=== PATIENT | female | born 1995 | race Native Hawaiian/Other Pacific Islander ===

== ENCOUNTER 2017-05-15 19:22 | Emergency (ER) | payer OTHER ==
[2017-05-15 19:50] VITALS: TEMP 98.4
--- NOTE | 2017-05-15 19:56 | PD ---
HPI Chief Complaint Contractions, leaking fluid Date Seen: May 15, 2017 (Zaria Bonilla MD, R3) Travel History International Travel<30 Days: No Contact w/Intl Traveler<30Days: No Known Affected Area: No (Zaria Bonilla MD, R3) History of Present Illness HPI Patient is a 22 year old at 36-5/7 weeks gestation who presents today for contractions and leaking fluid. She was checked by her outpatient provider yesterday and states that she has had leaking fluid since last night. She has also noticed about 2-3 contractions per hour. She was dilated 2cm in the outpatient office yesterday. She is also having some spotting. Positive movement. complicated by gestational diabetes that is diet controlled. care with Dr. Brito. (Zaria Bonilla MD, R3) History Past Medical History Narrative Medical Gestational Diabetes (Zaria Bonilla MD, R3) Obstetric History Obstetric History spontaneous 2015 (Zaria Bonilla MD, R3) Past Surgical History Surgical History: No Previous Surgery (Zaria Bonilla MD, R3) Family History Family History: Negative (Zaria Bonilla MD, R3) Social History Alcohol Use: No Tobacco Use: No Substance Abuse: No (Zaria Bonilla MD, R3) Allergies-Medications (Allergen,Severity, Reaction): Coded Allergies: No Known Allergies (Unverified , 05/15/17) Review of Systems Except as stated in HPI: all other systems reviewed are Neg General / Constitutional: No: Fever, Chills Eyes: No: Blurred Vision, Visual changes HENT: No: Headaches Cardiovascular: No: Chest Pain or Discomfort, Palpitations Respiratory: No: Cough, Short of Breath Gastrointestinal: No: Nausea, Vomiting Genitourinary: Pelvic Pain, Discharge, Vaginal Bleeding, No: Dysuria, Hematuria Musculoskeletal: No: Edema Neurologic: No: Headache Psychiatric: No: Substance Abuse (Zaria Bonilla MD, R3) Physical Exam Narrative GENERAL: Well-nourished, well-developed patient. SKIN: Warm and dry. HEAD: Normocephalic and atraumatic. EYES: No scleral icterus. No injection or drainage. ENT: No nasal drainage noted. Mucous membranes pink. Airway patent. NECK: Supple, trachea midline. No JVD. CARDIOVASCULAR: Regular rate and rhythm without murmurs, gallops, or rubs. RESPIRATORY: Breath sounds equal bilaterally. No accessory muscle use. ABDOMEN/GI: Abdomen soft, non-tender, bowel sounds present, no rebound, no guarding Gravid to 36 weeks size GENITOURINARY: External Genitalia: intact and normal in appearance BUS glands: normal Cervix: midposition Dilatation: 3 Effacement: 70 Station: -3 Presentation: vertex Membranes: intact Uterine Contractions: none FHT's: Category: I Baseline: 145 Reactive: + Variability: moderate Decels: none EXTREMITIES: No cyanosis or edema. BACK: Nontender without obvious deformity. No CVA tenderness. NEUROLOGICAL: Awake and alert. Motor and sensory grossly within normal limits. Normal speech. (Zaria Bonilla MD, R3) Data Data Vital Signs Reviewed: Yes Orders Orders Vital Signs (Adult) .ON ADMISSION (05/15/17 19:46) ^ Labor Status (05/15/17 19:46) ^ Non Stress Test (05/15/17 19:46) ^ Hydration (05/15/17 19:46) Group B Strep: Negative (Zaria Bonilla MD, R3) MDM Medical Record Reviewed: Yes Narrative Course / MDM 22 year old at 36-5/7 weeks gestation. 1. IUP- Category I tracing, reassuring. 2. Leaking fluid- Amnisure negative. 3. No contractions on monitor. Likely early labor. Discharge to home. Labor precautions provided. Follow-up with Dr. Brito. dw Dr. Machuca (Zaria Bonilla MD, R3) Attending Attestation Patient seen and evaluated with resident under direct supervision, agree with assessment and plan. (Garth Machuca MD) Diagnosis Diagnosis: Primary Impression: Pomona Pearce' contraction Additional Impression: 36 weeks gestation of Disposition: DISCHARGE HOME Condition: Stable Zaria Bonilla MD, R3 May 15, 2017 19:56 Garth Machuca MD May 16, 2017 07:20
== END 2017-05-15 21:11 | disposition home or self-care (01) ==
LOC: HOBED 19:22
DX: O47.03 False labor before 37 completed weeks of gestation, third trimester (principal); O24.419 Gestational diabetes mellitus in pregnancy, unspecified control; Z3A.36 36 weeks gestation of pregnancy
CPT/HCPCS: 59025; 84112

== ENCOUNTER 2017-06-04 06:30 | Inpatient (IN) | payer OTHER ==
[2017-06-04] VITALS (66 sets, daily range): BP systolic 59–125; BP diastolic 33–93; PULSE 79–116; RESP 16–20; TEMP 97.5–97.9
[2017-06-04 07:58] LABS: BASOPHIL % 0.2 % (0.0-2.0); EOSINOPHIL # 0.1 TH/MM3 (0-0.4); EOSINOPHIL % 0.6 % (0.0-4.0); HEMATOCRIT 35.6 % (35.0-46.0); HEMO FLAGS DIFF FINAL; LYMPH % 15.2 % (9.0-44.0); LYMPHOCYTE # 1.6 TH/MM3 (1.0-4.8); MEAN CELL VOLUME 86.5 FL (80.0-100.0); MEAN CORPUSCULAR HEMOGLOBIN 29.1 PG (27.0-34.0); MEAN CORPUSCULAR HGB CONC 33.6 % (32.0-36.0); MONO % 7.1 % (0.0-8.0); NEUT % 76.9 % (16.0-70.0); PLATELET COUNT 212 TH/MM3 (150-450); RED BLOOD COUNT 4.12 MIL/MM3 (4.00-5.30); RED CELL DISTRIBUTION WIDTH 14.6 % (11.6-17.2); WHITE BLOOD COUNT 10.4 TH/MM3 (4.0-11.0)
[2017-06-04 08:16] LABS: BACTERIA, URINE RARE /hpf; BLOOD, URINE NEG (NEG); COMMENT (UR) CULT NOT INDICATED; CULTURE IF INDICATED CULT NOT INDICATED; GLUCOSE,URINE NEG (NEG); KETONE, URINE NEG (NEG); NITRITE,URINE NEG (NEG); SQUAMOUS EPITHELIAL CELL URINE 1 /hpf (0-5); URINE COLOR YELLOW (YELLW/STRAW)
[2017-06-04] MEDS ORDERED: LACTATED RINGER'S 1000 ML INJ 1,000 ML IV PRN (08:49)
[2017-06-04] MEDS ORDERED: SODIUM CHLORID 0.9% 500 ML INJ 500 ML IV PRN (09:00)
[2017-06-04] MEDS ORDERED: OXYTOCIN 30 UNITS-500ML PREMIX 500 ML IV SCH ×2 (09:00→15:30)
[2017-06-04] MEDS ORDERED: CITRIC ACID-SODIUM CITRATE LIQ 30 ML UDC PO SCH (09:00)
[2017-06-04] MEDS ORDERED: MINERAL OIL 10 ML VIAL TOPICAL PRN (09:00)
[2017-06-04] MEDS ORDERED: OXYTOCIN 30 UNITS-500ML PREMIX 500 ML IV ONE (09:00)
[2017-06-04] MEDS ORDERED: LIDOCAINE HCL 1% 50 ML VIAL INFIL PRN (09:00)
[2017-06-04] MEDS ORDERED: LIDOCAINE HCL 1% 50 ML VIAL I-DERMAL PRN (09:00)
[2017-06-04] MEDS ORDERED: SODIUM CHLOR 0.9% 1000 ML INJ 1,000 ML IV PRN (09:09)
[2017-06-04] MEDS: LACTATED RINGER'S 1000 ML INJ 1,000 ML IV SCH ×2 (09:29→11:29)
[2017-06-04] MEDS ORDERED: ePHEDrine/NS 25 MG/5 ML SYR ONE (10:10)
[2017-06-04] MEDS ORDERED: fentaNYL 2MCG-BUPIV 0.125% INJ 100 ML ONE (10:10)
--- NOTE | 2017-06-04 11:47 | HHI.HP ---
HPI Chief Complaint iol Date Seen: Jun 04, 2017 Travel History International Travel<30 Days: No Contact w/Intl Traveler<30Days: No Known Affected Area: No History of Present Illness HPI 22 yo w iup at 39w4 d here for iol for gdm at term. she has irreg ctx, pelvic pressure. +fm. exam in office /-2 yesterday. diabetes well controlled w diet. Para: 0 Miscarriage: 1 History Past Medical History Medical History: Denies Significant Hx Obstetric History Obstetric History sab x1 Past Surgical History Narrative Surgical lasik Family History Family History: Negative Social History Alcohol Use: No Tobacco Use: No Substance Abuse: No Allergies-Medications (Allergen,Severity, Reaction): Coded Allergies: No Known Allergies (Unverified , 05/15/17) Review of Systems General / Constitutional: No: Fever, Weight Gain, Chills, Other Eyes: No: Diploplia, Blurred Vision, Visual changes, Pain, Photophobia HENT: No: Headaches, Vertigo, Lightheadedness Cardiovascular: No: Irregular Rhythm, Chest Pain or Discomfort, Palpitations, Tachycardia, Syncope, Varicosities, Edema, Cyanosis Respiratory: No: Cough, Short of Breath, Other Gastrointestinal: No: Nausea, Vomiting, Diarrhea Genitourinary: No: Decreased Urinary Output, Oliguria Musculoskeletal: No: Limited ROM, Weakness, Cramping, Edema, Pain Skin: No Rash, No Itching, No Dryness, No Lumps, No Change in Pigmentation, No Change in Nails, No Alopecia, No Lesions Neurologic: No: Weakness, Dizziness, Syncope, Focal Abnormalities, Coordination Problem, Headache, Slurred Speech, Seizures Psychiatric: No: Depression, Suicidal Ideations, Homicidal Ideation Endocrine: No: Heat Intolerance, Cold Intolerance, Polydipsia, Polyuria, Other Physical Exam Vital Signs Date Time Temp Pulse Resp B/P (MAP) Pulse Ox O2 Delivery O2 Flow Rate FiO2 06/04/17 11:30 97.7 106 95/56 (69) 06/04/17 11:26 20 06/04/17 11:25 102 103/71 (82) 06/04/17 11:20 101 105/62 (76) 06/04/17 11:20 91 06/04/17 11:15 110 103/68 (80) 06/04/17 11:15 103 06/04/17 11:10 101 108/65 (79) 06/04/17 11:10 101 06/04/17 11:05 102 112/70 (84) 06/04/17 11:05 98 06/04/17 11:00 20 06/04/17 11:00 103 06/04/17 11:00 18 06/04/17 11:00 104 107/67 (80) 06/04/17 10:58 112 100/57 (71) 06/04/17 10:55 101 06/04/17 10:55 100 98/58 (71) 06/04/17 10:52 98 113/62 (79) 06/04/17 10:51 99 125/93 (104) 06/04/17 10:50 110 06/04/17 10:45 111 100/63 (75) 06/04/17 10:45 116 06/04/17 10:40 109 06/04/17 10:35 97 115/70 (85) 06/04/17 10:35 101 06/04/17 10:31 97 108/64 (79) 06/04/17 10:30 97 95/65 (75) 06/04/17 10:25 97 06/04/17 10:22 93 94/66 (75) 06/04/17 10:20 98 06/04/17 09:37 18 06/04/17 09:32 100 104/71 (82) 06/04/17 08:12 97.6 06/04/17 08:11 18 Narrative GENERAL: Well-nourished, well-developed patient. SKIN: Warm and dry. HEAD: Normocephalic and atraumatic. EYES: No scleral icterus. No injection or drainage. ENT: No nasal drainage noted. Mucous membranes pink. Airway patent. NECK: Supple, trachea midline. No JVD. CARDIOVASCULAR: Regular rate and rhythm without murmurs, gallops, or rubs. RESPIRATORY: Breath sounds equal bilaterally. No accessory muscle use. BREASTS: Bilateral exam showed no masses ,. ABDOMEN/GI: Abdomen soft, non-tender, bowel sounds present, no rebound, no guarding Gravid to [40weeks size Fundal Height: [-] GENITOURINARY: External Genitalia: intact and normal in appearance BUS glands: [-] Cervix: [-]5/80/-3 Dilatation: [-] Effacement: [-] Station: [-] Presentation: [-] Membranes: [artificial ruptured] Uterine Contractions: [-] FHT's: Category: 1 Baseline: [-] Reactive: [-] Variability: [mod Decels: [-] EXTREMITIES: No cyanosis or edema. BACK: Nontender without obvious deformity. No CVA tenderness. NEUROLOGICAL: Awake and alert. Motor and sensory grossly within normal limits. Five out of 5 muscle strength in all muscle groups. Normal speech. Caprini VTE Risk Assessment Caprini VTE Risk Assessment: No/Low Risk (score <= 1) Caprini Risk Assessment Model Point Value = 1 Point Value = 2 Point Value = 3 Point Value = 5 Age 41-60 Minor surgery BMI > 25 kg/m2 Swollen legs Varicose veins or History of unexplained or recurrent spontaneous Oral contraceptives or hormone replacement Sepsis (< 1 month) Serious lung disease, including pneumonia (< 1 month) Abnormal pulmonary function Acute myocardial infarction Congestive heart failure (< 1 month) History of inflammatory bowel disease Medical patient at bed rest Age 61-74 Arthroscopic surgery Major open surgery (> 45 min) Laparoscopic surgery (> 45 min) Malignancy Confined to bed (> 72 hours) Immobilizing plaster cast Central venous access Age >= 75 History of VTE Family history of VTE Factor V Leiden Prothrombin [id number] Lupus anticoagulant Anticardiolipin antibodies Elevated serum homocysteine Heparin-induced thrombocytopenia Other congenital or acquired thrombophilia Stroke (< 1 month) Elective arthroplasty Hip, pelvis, or leg fracture Acute spinal cord injury (< 1 month) Prophylaxis Regimen Total Risk Factor Score Risk Level Prophylaxis Regimen 0-1 Low Early ambulation 2 Moderate Order ONE of the following: *Sequential Compression Device (SCD) *Heparin 5000 units SQ BID 3-4 Higher Order ONE of the following medications: *Heparin 5000 units SQ TID *Enoxaparin/Lovenox 40 mg SQ daily (WT < 150 kg, CrCl > 30 mL/min) *Enoxaparin/Lovenox 30 mg SQ daily (WT < 150 kg, CrCl > 10-29 mL/min) *Enoxaparin/Lovenox 30 mg SQ BID (WT < 150 kg, CrCl > 30 mL/min) AND/OR *Sequential Compression Device (SCD) 5 or more Highest Order ONE of the following medications: *Heparin 5000 units SQ TID (Preferred with Epidurals) *Enoxaparin/Lovenox 40 mg SQ daily (WT < 150 kg, CrCl > 30 mL/min) *Enoxaparin/Lovenox 30 mg SQ daily (WT < 150 kg, CrCl > 10-29 mL/min) *Enoxaparin/Lovenox 30 mg SQ BID (WT < 150 kg, CrCl > 30 mL/min) AND *Sequential Compression Device (SCD) Data Data Vital Signs Reviewed: Yes Orders Orders Code Status (06/04/17 07:48) Vital Signs (Adult) .Per protocol (06/04/17 07:48) Heart (06/04/17 07:48) Amnioinfusion (06/04/17 07:48) Urinary Catheter Management .ONCE (06/04/17 07:48) Complete Blood Count With Diff (06/04/17 07:48) Hold Clot (06/04/17 07:48) Abo/Rh Blood Type (06/04/17 07:48) Urinalysis - C+S If Indicated (06/04/17 07:48) Resp Oxygen Non Rebreathe Mask (06/04/17 ) ^ Epidural / Intrathecal Infus (06/04/17 07:48) Specimen To Be Collected PRN (06/04/17 07:48) ^ Non Stress Test (06/04/17 07:49) Response To Medication .Post New Med Administration, Reaction (06/04/17 07:49) ^ Discontinue Medication (06/04/17 07:49) ^ Non Stress Test (06/04/17 08:28) Response To Medication .Post New Med Administration, Reaction (06/04/17 08:28) ^ Discontinue Medication (06/04/17 08:28) Oxytocin 30 Units-500ml Premix (Pitocin (06/04/17 09:00) Admit To Inpatient (06/04/17 ) Vital Signs (Adult) .Per protocol (06/04/17 08:49) Heart (06/04/17 08:49) Amnioinfusion (06/04/17 08:49) Urinary Catheter Management .ONCE (06/04/17 08:49) Lactated Ringer's 1000 Ml Inj (Lr 1000 M (06/04/17 09:00) Lactated Ringer's 1000 Ml Inj (Lr 1000 M (06/04/17 08:49) Sodium Chlorid 0.9% 500 Ml Inj (Ns 500 M (06/04/17 09:00) Sodium Chlor 0.9% 1000 Ml Inj (Ns 1000 M (06/04/17 09:09) Lidocaine 1% Inj (50 Ml) (Xylocaine 1% I (06/04/17 09:00) Citric Acid-Sodium Citrate Liq (Bicitra (06/04/17 09:00) Fentanyl Inj (Fentanyl Inj) (06/04/17 09:00) Fentanyl Inj (Fentanyl Inj) (06/04/17 09:00) Resp Oxygen Non Rebreathe Mask (06/04/17 ) ^ Epidural / Intrathecal Infus (06/04/17 08:49) Oxytocin 30 Units-500ml Premix (Pitocin (06/04/17 09:00) Lidocaine 1% Inj (50 Ml) (Xylocaine 1% I (06/04/17 09:00) Light Mineral Oil (Muri-Lube Oil) (06/04/17 09:00) Inpatient Certification (06/04/17 ) Fentanyl 2mcg-Bupiv 0.125% Inj (Fentanyl (06/04/17 10:10) Ephedrine/Ns 25 Mg/5 Ml Syr (Ephedrine/N (06/04/17 10:10) ^ Place On Chart (06/04/17 ) ^ Medication Indications (06/04/17 ) Consent (06/04/17 ) ^ No Systemic Narcotics (06/04/17 ) ^ Call Anesthesiologist (06/04/17 ) ^ Discontinue Epidural Cathete (06/04/17 ) Anticoagulant Alert (06/04/17 ) ^ Epidural Alert (06/04/17 ) Labs Laboratory Tests Test 06/04/17 07:30 White Blood Count 10.4 Red Blood Count 4.12 Hemoglobin 12.0 Hematocrit 35.6 Mean Corpuscular Volume 86.5 Mean Corpuscular Hemoglobin 29.1 Mean Corpuscular Hemoglobin Concent 33.6 Red Cell Distribution Width 14.6 Platelet Count 212 Mean Platelet Volume 9.2 Neutrophils (%) (Auto) 76.9 Lymphocytes (%) (Auto) 15.2 Monocytes (%) (Auto) 7.1 Eosinophils (%) (Auto) 0.6 Basophils (%) (Auto) 0.2 Neutrophils # (Auto) 8.0 Lymphocytes # (Auto) 1.6 Monocytes # (Auto) 0.7 Eosinophils # (Auto) 0.1 Basophils # (Auto) 0.0 CBC Comment DIFF FINAL Differential Comment Urine Color YELLOW Urine Turbidity CLEAR Urine pH 7.0 Urine Specific [place] 1.015 Urine Protein NEG Urine Glucose (UA) NEG Urine Ketones NEG Urine Occult Blood NEG Urine Nitrite NEG Urine Bilirubin NEG Urine Urobilinogen LESS THAN 2.0 Urine Leukocyte Esterase NEG Urine RBC LESS THAN 1 Urine WBC LESS THAN 1 Urine Squamous Epithelial Cells 1 Urine Bacteria RARE Microscopic Urinalysis Comment CULT NOT INDICATED Assessment/Plan Problem List: (1) Gestational diabetes mellitus ICD Codes: O24.419 - Gestational diabetes mellitus in , unspecified control Status: Chronic Qualifiers: Assessment and Plan 22 yo with iup at 39w4d by first trimester u/s here for iol at term with GDM 1) IOL- favorable malagon score, arom and pitocin. Aware of possible risk of cd 2) GDM - well controlled with diet 3) ASCUS pap repeat pp 4) FEtus 27 %ile at 35 wk visit. Discharge Planning PP d 2-3 Rena Brito MD Jun 04, 2017 11:47
--- NOTE | 2017-06-04 15:27 | PD.OB.DELI ---
Weeks gestation: 39 Gest age assessed date: Jun 04, 2017 Gest age assessed time: 15:25 Pt started active labor?: No Medical induction of labor?: Yes Medical induction start date: Jun 04, 2017 Artificial rupture of membrane: Yes Artificial ROM date: Jun 04, 2017 Artifical ROM time: 08:45 Anesthesia: Epidural Episiotomy: None Vaginal Delivery: Normal, Vacuum (NRFHT, outlet forceps, pull through 2 contractions with one pop off. Placed on medican flexion point. Bladder empty , appropriate anesthesia, verbal consent at time of procedure and previously in writing. ) Presentation: Occiput anterior Nuchal Cord: x1 Delayed cord clamping (45 sec): No Infant: Male Delivery date: Jun 04, 2017 Delivery time: 15:11 One Minute : 8 Five Minute : 9 Weight: 2870g Placenta: Spontaneous delivery Laceration: 2 deg Repair: Chromic running Estimated blood loss: 300ml Additional Information family debriefed on delivery occurrences, need for vacuum. Expressed understanding. Rena Brito MD Jun 04, 2017 15:27
[2017-06-04] MEDS ORDERED: SODIUM CHLORIDE 0.9% FLUSH 10 ML FLUSH IV FLUSH PRN (15:30)
[2017-06-04] MEDS ORDERED: ONDANSETRON ODT 4 MG TAB PO PRN (15:30)
[2017-06-04] MEDS ORDERED: ACETAMINOPHEN 325 MG TAB PO PRN (15:30)
[2017-06-04] MEDS ORDERED: ZOLPIDEM TARTRATE 5 MG TAB PO PRN (15:30)
[2017-06-04] MEDS ORDERED: ALUMINUM/MAGNESIUM/SIMETH 30 ML CUP PO PRN (15:30)
[2017-06-04] MEDS ORDERED: MEASLES, MUMPS, RUBELLA VACCINE 0.5 ML VIAL SQ ONE (16:00)
[2017-06-04] MEDS ORDERED: DIPHTH/TETANUS/ACEL PERTUSSIS (BOOSTER) 0.5 ML VIAL/PFS IM ONE (16:00)
[2017-06-04 16:43] LABS: BLOOD GAS BASE EXCESS -3.9 mmol/L (-2-2); BLOOD GAS O2 HGB SATURATION 31 % (90-100); CORD BLOOD GAS HCO3 23 mmol/L (21-29); CORD BLOOD GAS PCO2 64 mmHG (34-78); CORD BLOOD GAS PH 7.19 (7.14-7.42); CORD BLOOD GAS PO2 19 mmHG (3.0-40.0); DRAW SITE CORD BLOOD; STAT NO
[2017-06-04] MEDS ORDERED: ePHEDrine/NS 25 MG/5 ML SYR IV PRN (16:45)
[2017-06-04] MEDS ORDERED: DO NOT ADMINISTER ANTICOAGULANTS PRN (16:45)
[2017-06-04] MEDS ORDERED: fentaNYL 2MCG-BUPIV 0.125% 100 ML EPIDURAL SCH (16:45)
[2017-06-04] MEDS ORDERED: NO SYSTEM NARCOTICS PRN (16:45)
[2017-06-04] MEDS: WITCH HAZEL 50%/GLYCERIN 12.5% 40 PAD JAR TOPICAL PRN (20:00)
[2017-06-04] MEDS: BENZOCAINE 20% TOPICAL SPRAY 60 ML CAN TOPICAL PRN (20:00)
[2017-06-04] MEDS ORDERED: SODIUM CHLORIDE 0.9% FLUSH 10 ML FLUSH IV FLUSH SCH (21:00)
[2017-06-05] MEDS: IBUPROFEN 600 MG TAB PO PRN ×5 (01:30→23:41)
[2017-06-05] MEDS: oxyCODONE/ACETAMINOPHEN 5 MG/325 MG TAB PO PRN ×4 (01:30→23:43)
[2017-06-05 03:25] VITALS: BP 99/62; PULSE 82; RESP 18; TEMP 98
[2017-06-05 07:50] VITALS: BP 90/60; PULSE 96; RESP 18; TEMP 97.9
--- NOTE | 2017-06-05 08:05 | HHI.OB ---
Subjective Post Day: 1 Remarks , pain at episiotomy Objective Vitals/I&O Vital Signs Date Time Temp Pulse Resp B/P (MAP) Pulse Ox O2 Delivery O2 Flow Rate FiO2 06/05/17 03:25 82 99/62 (74) 06/05/17 03:25 98.0 18 06/04/17 20:20 97.5 79 18 96/48 (64) 06/04/17 18:05 97.9 86 17 94/59 (71) 06/04/17 17:16 97.5 06/04/17 16:45 16 06/04/17 16:43 102 95/68 (77) 06/04/17 16:31 86 89/51 (64) 06/04/17 16:15 88 97/61 (73) 06/04/17 16:07 16 06/04/17 16:01 91 102/50 (67) 06/04/17 16:00 96 83/59 (67) 06/04/17 15:58 92 97/55 (69) 06/04/17 15:48 16 06/04/17 15:45 91 85/54 (64) 06/04/17 15:32 16 06/04/17 15:31 102 92/57 (69) 06/04/17 15:25 106 89/49 (62) 06/04/17 15:23 100 90/42 (58) 06/04/17 15:22 103 59/43 (48) 06/04/17 15:19 103 101/43 (62) 06/04/17 15:17 98 86/48 (61) 06/04/17 15:16 114 71/33 (46) 06/04/17 15:13 98 113/57 (75) 06/04/17 14:46 96 107/56 (73) 06/04/17 14:34 99 102/56 (71) 06/04/17 14:32 97 95/47 (63) 06/04/17 14:16 98 90/67 (75) 06/04/17 14:15 18 06/04/17 14:04 97.5 06/04/17 14:00 91 104/61 (75) 06/04/17 13:46 104 104/64 (77) 06/04/17 13:45 20 06/04/17 13:30 91 99/59 (72) 06/04/17 13:15 93 101/62 (75) 06/04/17 13:13 20 06/04/17 13:00 108 105/67 (80) 06/04/17 12:45 20 06/04/17 12:45 93 104/62 (76) 06/04/17 12:30 102 108/61 (77) 06/04/17 12:15 93 100/54 (69) 06/04/17 12:00 105 93/56 (68) 06/04/17 11:53 98 101/62 (75) 06/04/17 11:51 107 97/54 (68) 06/04/17 11:30 97.7 106 95/56 (69) 06/04/17 11:26 20 06/04/17 11:25 102 103/71 (82) 06/04/17 11:20 101 105/62 (76) 06/04/17 11:20 91 06/04/17 11:15 110 103/68 (80) 06/04/17 11:15 103 06/04/17 11:10 101 108/65 (79) 06/04/17 11:10 101 06/04/17 11:05 102 112/70 (84) 06/04/17 11:05 98 06/04/17 11:00 20 06/04/17 11:00 103 06/04/17 11:00 18 06/04/17 11:00 104 107/67 (80) 06/04/17 10:58 112 100/57 (71) 06/04/17 10:55 101 06/04/17 10:55 100 98/58 (71) 06/04/17 10:52 98 113/62 (79) 06/04/17 10:51 99 125/93 (104) 06/04/17 10:50 110 06/04/17 10:45 111 100/63 (75) 06/04/17 10:45 116 06/04/17 10:40 109 06/04/17 10:35 97 115/70 (85) 06/04/17 10:35 101 06/04/17 10:31 97 108/64 (79) 06/04/17 10:30 97 95/65 (75) 06/04/17 10:25 97 9/14/17 10:22 93 94/66 (75) 06/04/17 10:20 98 06/04/17 09:37 18 06/04/17 09:32 100 104/71 (82) 06/04/17 08:12 97.6 06/04/17 08:11 18 Objective Remarks GENERAL: Well-nourished, well-developed patient. CARDIOVASCULAR: Regular rate and rhythm without murmurs, gallops, or rubs. RESPIRATORY: Breath sounds equal bilaterally. No accessory muscle use. ABDOMEN/GI: Abdomen soft, non-tender. Fundus: Firm, non-tender at umbilicus. GENITOURINARY: Light to moderate bleeding. EXTREMITIES: No cyanosis or edema, non-tender, without signs of DVT. Medications and IVs Current Medications Medications (Trade) Dose Ordered Sig/Carissa Route Start Time Stop Time Status Last Admin (NS Flush) 2 ml BID IV FLUSH 06/04/17 21:00 (NS Flush) 2 ml UNSCH PRN IV FLUSH 06/04/17 15:30 (Tylenol) 650 mg Q4H PRN PO 06/04/17 15:30 (Motrin) 600 mg Q6H PRN PO 06/04/17 15:30 06/05/17 01:30 (Percocet 5-325 Mg) 1 tab Q4H PRN PO 06/04/17 15:30 06/05/17 01:30 (Americaine 20% Top Spr) 1 spray Q4H PRN TOPICAL 06/04/17 15:30 06/04/17 20:00 (Tucks Pads) 1 applic QID PRN TOPICAL 06/04/17 15:30 06/04/17 20:00 (Natasha-Colace) 2 tab Q12H PRN PO 06/04/17 15:30 (Ambien) 5 mg HS PRN PO 06/04/17 15:30 (Mag-Al Plus Susp Liq) 15 ml Q8H PRN PO 06/04/17 15:30 (Zofran Odt) 4 mg Q6H PRN PO 06/04/17 15:30 06/04/17 17:35 Miscellaneous Information No systemic narcotics to be given except... UNSCH PRN .XX 06/04/17 16:45 06/05/17 16:44 Miscellaneous Information DO NOT ADMINISTER ANY ANTICOAGUL... UNSCH PRN .XX 06/04/17 16:45 06/05/17 16:44 Fentanyl/ Bupivacaine HCl 100 ml @ 11 mls/hr TITRATE EPIDURAL 06/04/17 16:45 06/04/17 17:36 (ePHEDrine/NS 25 MG/5 ML SYR) 10 mg UNSCH PRN IV 06/04/17 16:45 06/05/17 16:44 Assessment/Plan Problem List: (1) Gestational diabetes mellitus ICD Codes: O24.419 - Gestational diabetes mellitus in , unspecified control Status: Chronic Qualifiers: (2) Vaginal delivery ICD Codes: O80 - Encounter for full-term uncomplicated delivery Assessment and Plan s/p , PPD #1, IOL for diet controlled GDM Discharge Planning PP d 2-3 Attending Attestation pt seen by Preethi Wayne MD Jun 05, 2017 08:05
[2017-06-05] MEDS: DOCUSATE SODIUM 50 MG/SENNA 8.6 MG TAB PO PRN ×2 (08:17→23:43)
[2017-06-05 20:25] VITALS: BP 89/59; PULSE 94; RESP 20; TEMP 97.8
[2017-06-06 04:25] VITALS: BP 106/52; PULSE 98; RESP 20; TEMP 98.2
[2017-06-06 08:25] VITALS: BP 103/66; PULSE 102; RESP 22; TEMP 98.2
[2017-06-06] MEDS: IBUPROFEN 600 MG TAB PO PRN (09:06)
[2017-06-06] MEDS: oxyCODONE/ACETAMINOPHEN 5 MG/325 MG TAB PO PRN (09:06)
[2017-06-06] MEDS: BENZOCAINE 20% TOPICAL SPRAY 60 ML CAN TOPICAL PRN (09:07)
[2017-06-06] MEDS: WITCH HAZEL 50%/GLYCERIN 12.5% 40 PAD JAR TOPICAL PRN (09:07)
--- NOTE | 2017-06-06 09:37 | HHI.OB ---
Subjective Post Day: 2 Remarks pain at episiotomy, Objective Vitals/I&O Vital Signs Date Time Temp Pulse Resp B/P (MAP) Pulse Ox O2 Delivery O2 Flow Rate FiO2 06/06/17 04:25 98 106/52 (70) 06/06/17 04:25 98.2 20 06/05/17 20:25 97.8 94 20 89/59 (69) Objective Remarks GENERAL: Well-nourished, well-developed patient. CARDIOVASCULAR: Regular rate and rhythm without murmurs, gallops, or rubs. RESPIRATORY: Breath sounds equal bilaterally. No accessory muscle use. ABDOMEN/GI: Abdomen soft, non-tender. Fundus: Firm, non-tender at umbilicus. GENITOURINARY: Light to moderate bleeding. no swelling, no erythema EXTREMITIES: No cyanosis or edema, non-tender, without signs of DVT. Medications and IVs Current Medications Medications (Trade) Dose Ordered Sig/Carissa Route Start Time Stop Time Status Last Admin (NS Flush) 2 ml BID IV FLUSH 06/04/17 21:00 (NS Flush) 2 ml UNSCH PRN IV FLUSH 06/04/17 15:30 (Tylenol) 650 mg Q4H PRN PO 06/04/17 15:30 (Motrin) 600 mg Q6H PRN PO 06/04/17 15:30 06/06/17 09:06 (Percocet 5-325 Mg) 1 tab Q4H PRN PO 06/04/17 15:30 06/06/17 09:06 (Americaine 20% Top Spr) 1 spray Q4H PRN TOPICAL 06/04/17 15:30 06/06/17 09:07 (Tucks Pads) 1 applic QID PRN TOPICAL 06/04/17 15:30 06/06/17 09:07 (Natasha-Colace) 2 tab Q12H PRN PO 06/04/17 15:30 06/05/17 23:43 (Ambien) 5 mg HS PRN PO 06/04/17 15:30 (Mag-Al Plus Susp Liq) 15 ml Q8H PRN PO 06/04/17 15:30 (Zofran Odt) 4 mg Q6H PRN PO 06/04/17 15:30 9/14/17 17:35 Fentanyl/ Bupivacaine HCl 100 ml @ 11 mls/hr TITRATE EPIDURAL 06/04/17 16:45 06/04/17 17:36 Assessment/Plan Problem List: (1) Gestational diabetes mellitus ICD Codes: O24.419 - Gestational diabetes mellitus in , unspecified control Status: Chronic Qualifiers: (2) Vaginal delivery ICD Codes: O80 - Encounter for full-term uncomplicated delivery Assessment and Plan s/p , PPD #2, IOL for diet controlled GDM Discharge Planning PP d 2-3 Attending Attestation pt seen by Preethi Wayne MD Jun 06, 2017 09:36
[2017-06-06] MEDS ORDERED: OXYC1TAB63 PO (09:38)
[2017-06-06] MEDS ORDERED: IBUP-232 PO (09:38)
--- NOTE | 2017-06-06 09:38 | HHI.DCPOC ---
Discharge Care Plan Your Health Problems Are: Pelvic pain Report Symptoms to Your Doctor -Temperature above 100.5 degrees -Redness, of incision or excessive or foul smelling drainage -Unusual pain or calf pain -Increased vaginal bleeding -Painful or difficulty urinating -Feelings of extreme sadness or anxiety after 2 weeks Goals to Promote Your Health * To prevent worsening of your condition and complications * To maintain your health at the optimal level Directions to Meet Your Goals Take your medications as prescribed Follow your dietary instruction Follow activity as directed Ensure plenty of rest for recovery Drink fluids for hydration Keep your appointments as scheduled Take your immunizations and boosters as scheduled If your symptoms worsen call your PCP, if no PCP go to Urgent Care Center or Emergency Room Smoking is Dangerous to Your Health. Avoid second hand smoke Call the 24-hour crisis hotline for domestic abuse at Preethi Romero MD Jun 06, 2017 09:38
== END 2017-06-06 15:18 | disposition home or self-care (01) | DRG 775 ==
LOC: H2EA 06:30 → H1EA 17:39
PROVIDERS: ADMIT Obstetrics & Gynecology; ATTEND Obstetrics & Gynecology
PROC: 10D07Z6 Extraction of Products of Conception, Vacuum, Via Natural or Artificial Opening (ICD-10-PCS; principal; 2017-06-04)
PROC: 10D07Z3 Extraction of Products of Conception, Low Forceps, Via Natural or Artificial Opening (ICD-10-PCS; 2017-06-04)
PROC: 00HU33Z Insertion of Infusion Device into Spinal Canal, Percutaneous Approach (ICD-10-PCS; 2017-06-04)
PROC: 3E0R3CZ (ICD-10-PCS; 2017-06-04)
DX: O24.420 Gestational diabetes mellitus in childbirth, diet controlled (principal); O69.81X0 Labor and delivery complicated by cord around neck, without compression, not applicable or unspecified; Z37.0 Single live birth; Z3A.39 39 weeks gestation of pregnancy
CPT/HCPCS: 81001; 82805; 85025; 86900; 86901; J2590; J7120